=== PATIENT | female | born 1960 | race Hispanic/Latino ===

== ENCOUNTER 2019-07-26 13:22 | Emergency (ER) | payer OTHER, SELFPAY ==
[2019-07-26 14:17] LABS: Urine Blood 2+ (NEG); Urine Glucose TRACE (NEG); Urine Protein 1+ (NEG)
[2019-07-26 14:28] LABS: Urine Bacteria 20-50 /HPF (<20)
[2019-07-26 14:29] LABS: Urine Culture Reflex Order NOT NEEDED
--- NOTE | 2019-07-26 15:01 | EDPHYS ---
Physician Documentation [facility] Name: Milka Cuadra Age: 59 yrs Sex: Female : 1960 Arrival Date: 07/26/2019 Time: 13:25 Bed 13 Private MD: ED Physician Poli Harvey HPI: 07/26 14:04 This 59 yrs old Female presents to ER via Ambulatory with complaints of High rn Blood Sugar, Urinary Problem. 14:05 Reports told yesterday at clinic that had UTI, no abx written for, + subjective fevers rn and chills. Onset: The symptoms/episode began/occurred 3 day(s) ago. Severity of symptoms: At their worst the symptoms were mild in the emergency department the symptoms are unchanged. The patient has not experienced similar symptoms in the past. Historical: - Allergies: 13:42 No Known Allergies; ss - PMHx: 13:42 Diabetes - IDDM; liver calcification; ss - Immunization history:: Adult Immunizations up to date. - Social history:: Smoking status: Patient uses tobacco products, denies chronic smoking, but will smoke occasionally. - Ebola Screening: : Patient denies exposure to infectious person Patient denies travel to an Ebola-affected area in the 21 days before illness onset. - Family history:: not pertinent. - Hospitalizations: : No recent hospitalization is reported. 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 Exam: 14:05 Constitutional: This is a well developed, well nourished patient who is awake, alert, rn and in no acute distress. Head/Face: Normocephalic, atraumatic. Cardiovascular: tachycardic, regular, No pulse deficits. Respiratory: No increased work of breathing, no retractions or nasal flaring. Abdomen/GI: Soft, non-tender Back: No spinal tenderness. No costovertebral tenderness. Full range of motion. MS/ Extremity: Pulses equal, no cyanosis. Neurovascular intact. Full, normal range of motion. Equal circumference. Neuro: Awake and alert, GCS 15, oriented to person, place, time, and situation. Cranial nerves II-XII grossly intact. Motor strength 5/5 in all extremities. Sensory grossly intact. Cerebellar exam normal. Normal gait. Vital Signs: 13:40 BP 151 / 68; Pulse 110; Resp 18; Temp 98.9; Pulse Ox 98% on R/A; Weight 69.4 kg; Height ss 5 ft. 11 in. (180.34 cm); Pain 0/10; 14:23 BP 116 / 52; Pulse 98; Resp 17 S; Pulse Ox 96% on R/A; ca1 15:26 BP 111 / 51; Pulse 90; Resp 17 S; Pulse Ox 99% on R/A; ca1 13:40 Body Mass Index 21.34 (69.40 kg, 180.34 cm) ss MDM: 13:53 Patient medically screened. rn 14:59 Differential Diagnosis UTI. Data reviewed: vital signs, nurses notes, lab test rn result(s), and as a result, I will discharge patient. Counseling: I had a detailed discussion with the patient and/or guardian regarding: the historical points, exam findings, and any diagnostic results supporting the discharge/admit diagnosis, lab results, the need for outpatient follow up, to return to the emergency department if symptoms worsen or persist or if there are any questions or concerns that arise at home. Special discussion: I discussed with the patient/guardian in detail that at this point there is no indication for admission to the hospital. It is understood, however, that if the symptoms persist or worsen the patient needs to return immediately for re-evaluation. 07/26 13:49 Order name: Glucose, Ancillary Testing EDMS 07/26 13:58 Order name: Urine Microscopic Only; Complete Time: 14:58 rn 07/26 13:58 Order name: Urine Dipstick-Ancillary (obtain specimen); Complete Time: 14:17 rn 07/26 13:58 Order name: Urine Culture rn 07/26 14:08 Order name: Urine Dipstick--Ancillary (enter results); Complete Time: 14:58 bd Administered Medications: No medications were administered Disposition: 07/26/19 15:00 Discharged to Home. Impression: Urinary tract infection, site not specified. - Condition is Stable. - Discharge Instructions: Urinary Tract Infection, Adult. - Prescriptions for Cipro 500 mg Oral Tablet - take 1 tablet by ORAL route every 12 hours for 7 days; 14 tablet. - Medication Reconciliation Form, Thank You Letter, Antibiotic Education, Prescription Opioid Use form. - Follow up: Private Physician; When: As needed; Reason: Recheck today's complaints, Re-evaluation by your physician. - Problem is new. - Symptoms have improved. Signatures: Dispatcher [employer] EDMS Poli Harvey MD MD rn Veronica Mejía RN RN ss Katheryn Boyikn RN RN ca1 Corrections: (The following items were deleted from the chart) 15:27 15:00 07/26/2019 15:00 Discharged to Home. Impression: Urinary tract infection, site ca1 not specified. Condition is Stable. Forms are Medication Reconciliation Form, Thank You Letter, Antibiotic Education, Prescription Opioid Use. Follow up: Private Physician; When: As needed; Reason: Recheck today's complaints, Re-evaluation by your physician. Problem is new. Symptoms have improved. rn
--- NOTE | 2019-07-26 15:01 | ER ---
Nurse's Notes [facility] Name: Milka Cuadra Age: 59 yrs Sex: Female : 1960 Arrival Date: 07/26/2019 Time: 13:25 Bed 13 Private MD: Diagnosis: Urinary tract infection, site not specified Presentation: 07/26 13:41 Presenting complaint: Patient states: Chills that began yesterday. Patient was seen at the [facility] clinic last night and was told she had a UTI. tested negative for flu and strep. Denies urinary s/s. Transition of care: patient was not received from another setting of care. Onset of symptoms was July 25, 2019. Risk Assessment: Do you want to hurt yourself or someone else? Patient reports no desire to harm self or others. Initial Sepsis Screen: Does the patient meet any 2 criteria? HR > 90 bpm. Does the patient have a suspected source of infection? Yes: Dysuria/Frequency/Urgency/UTI. Care prior to arrival: None. 13:41 Method Of Arrival: Ambulatory 13:41 Acuity: TERI 3 ss Historical: - Allergies: 13:42 No Known Allergies; - PMHx: 13:42 Diabetes - IDDM; liver calcification; ss - Immunization history:: Adult Immunizations up to date. - Social history:: Smoking status: Patient uses tobacco products, denies chronic smoking, but will smoke occasionally. - Ebola Screening: : Patient denies exposure to infectious person Patient denies travel to an Ebola-affected area in the 21 days before illness onset. - Family history:: not pertinent. - Hospitalizations: : No recent hospitalization is reported. Screenin:40 Abuse screen: Denies threats or abuse. Denies injuries from another. Nutritional ca1 screening: No deficits noted. Tuberculosis screening: No symptoms or risk factors identified. Fall Risk None identified. Assessment: 13:40 General: Appears in no apparent distress. comfortable, Behavior is calm, cooperative, ca1 appropriate for age. General: Reports chills for 1-2 days, fever for. Pain: Denies pain. Neuro: Level of Consciousness is awake, alert, obeys commands, Oriented to person, place, time, situation. Cardiovascular: Heart tones S1 S2 present Capillary refill < 3 seconds Patient's skin is warm and dry. Respiratory: Airway is patent Respiratory effort is even, unlabored, Respiratory pattern is regular, symmetrical, Breath sounds are clear bilaterally. GI: Abdomen is round non-distended, Bowel sounds present X 4 quads. Abd is soft and non tender X 4 quads. : No deficits noted. No signs and/or symptoms were reported regarding the genitourinary system. EENT: No deficits noted. No signs and/or symptoms were reported regarding the EENT system. Derm: Skin is intact, is healthy with good turgor, Skin is pink, warm \T\ dry. Musculoskeletal: Circulation, motion, and sensation intact. Capillary refill < 3 seconds. 14:23 Reassessment: Patient appears in no apparent distress at this time. Patient is alert, ca1 oriented x 3, equal unlabored respirations, skin warm/dry/pink. 15:26 Reassessment: Patient appears in no apparent distress at this time. Patient is alert, ca1 oriented x 3, equal unlabored respirations, skin warm/dry/pink. Vital Signs: 13:40 BP 151 / 68; Pulse 110; Resp 18; Temp 98.9; Pulse Ox 98% on R/A; Weight 69.4 kg; Height ss 5 ft. 11 in. (180.34 cm); Pain 0/10; 14:23 BP 116 / 52; Pulse 98; Resp 17 S; Pulse Ox 96% on R/A; ca1 15:26 BP 111 / 51; Pulse 90; Resp 17 S; Pulse Ox 99% on R/A; ca1 13:40 Body Mass Index 21.34 (69.40 kg, 180.34 cm) ED Course: 13:25 Patient arrived in ED. as 13:38 Patient has correct armband on for positive identification. Bed in low position. Call 5 light in reach. Adult w/ patient. Pulse ox on. NIBP on. 13:40 No provider procedures requiring assistance completed. ca1 13:42 Triage completed. ss 13:42 Arm band placed on right wrist. ss 13:53 Poli Harvey MD is Attending Physician. rn 14:16 Katheryn Boykin, GLORY is Primary Nurse. ca1 15:10 Glucose, Ancillary Testing Sent. 5 15:11 glucose fs is 161. 5 15:26 Patient did not have IV access during this emergency room visit. ca1 Administered Medications: No medications were administered Outcome: 15:00 Discharge ordered by . rn 15:26 Discharged to home ambulatory, with family. ca1 15:26 Condition: stable 15:26 Discharge instructions given to patient, Instructed on discharge instructions, follow up and referral plans. medication usage, Demonstrated understanding of instructions, follow-up care, medications, Prescriptions given X 1. 15:27 Patient left the ED. ca1 Addendum: 07/29/2019 08:02 Addendum: Culture Results: Positive urine culture. No further action required. Bacteria i w sensitive to prescribed antibiotic. Signatures: Trisha Hernández Irene, RN RN Poli Harvey MD MD rn Smirch, Shelby, RN RN ss Martinez, Maria [facility] Katheryn Boykin RN RN ca1 Corrections: (The following items were deleted from the chart) 07/26 15:11 15:10 Glucose, Ancillary Testing drawn and sent. 5 [facility]
[2019-07-26 16:49] VITALS: TEMP 98.9
[2019-07-26 16:52] VITALS: BP 111/51; O2SAT 99
== END 2019-07-26 15:27 | disposition home or self-care (01) ==
LOC: ER 13:22
DX: N39.0 Urinary tract infection, site not specified (principal); Z72.0 Tobacco use
CPT/HCPCS: 81003; 81015; 82947; 87077; 87086; 87088; 87186; 99283